=== PATIENT | female | born 1960 | race Caucasian/White ===

== ENCOUNTER 2021-10-30 09:23 | Day surgery (SDC) | payer BC ==
[2021-10-30 10:18] VITALS: RESP 16; TEMP 98.1
[2021-10-30 11:07] VITALS: BP 151/75; PULSE 61
--- NOTE | 2021-10-30 12:15 | US ---
EXAMINATION TYPE: US FNA thyroid each add lesion, US FNA thyroid first lesion DATE OF EXAM: 10/30/2021 COMPARISON: NONE HISTORY: Thyroid nodules. Maximal barrier technique was utilized. After informed consent, skin overlying the right lobe thyroi d nodule was localized with ultrasound and the overlying skin prepped and draped. Ultrasound was util ized using sterile technique. Lidocaine was used for local anesthesia. Five passes with a 25-gauge n eedle were made into the nodule and aspirated specimen was submitted to cytology. Using similar techn ique the left lobe thyroid nodule was sampled with 5 passes under ultrasound guidance with a 25-gauge needle. Aspirated specimen submitted to cytology. Following the procedure hemostasis achieved. No i mmediate complication. The patient discharged in stable condition. IMPRESSION: STATUS POST ULTRASOUND GUIDED FINE NEEDLE ASPIRATION OF THYROID NODULES bilaterally, PATH OLOGY IS PENDING. THIS PROCEDURE WAS PERFORMED BY THE UNDERSIGNED.
== END 2021-10-30 11:05 | disposition home or self-care (01) ==
LOC: RADPROMAIN 09:23
PROVIDERS: ATTEND Internal Medicine Endocrinology, Diabetes & Metabolism
DX: E04.2 Nontoxic multinodular goiter (principal)
CPT/HCPCS: 10005; 10006; 88173; 88305